=== PATIENT | male | born 1970 | race Caucasian/White ===

== ENCOUNTER 2024-03-17 02:10 | Inpatient (IN) | payer MEDICAID ==
[~2024-03-17] VITALS: Ht 162.6 cm; Wt 70.4 kg
[2024-03-17] VITALS (8 sets, daily range): BP systolic 112–113; BP diastolic 67–72; PULSE 68–98; RESP 18–20; TEMP 36.16956–36.3068; O2SAT 91–98
[2024-03-17] MEDS: ALBUTEROL (0.083%) 2.5MG/3ML NEB HHN SCH (02:45)
[2024-03-17] MEDS: IPRATROPIUM BROMIDE (0.02%) 0.5MG/2.5ML NEB HHN STA (02:45)
[2024-03-17 02:47] LABS: EOSINOPHILS % 3.3 % (0.0-5.0); HEMOGLOBIN. 17.8 g/dL (14.0-18.0); MEAN CORPUSCULAR HEMOGLOBIN 32.6 pg (28.0-32.0); MEAN CORPUSCULAR HGB CONC 33.6 g/dL (31.0-37.0); MEAN CORPUSCULAR VOLUME 97.2 fL (80.0-94.0); MEAN PLATELET VOLUME 7.7 fl (7.4-10.4); MONOCYTES % 7.3 % (2.0-8.0); NEUTROPHILS % 68.4 % (40.0-76.0); PLATELET 332 x1000/uL (130-400); RED BLOOD CELL COUNT 5.45 mill/uL (4.7-6.1); RED CELL DISTRIBUTION WIDTH 14.5 % (11.6-14.6); WHITE BLOOD COUNT 7.3 x1000/uL (4.5-11.0)
[2024-03-17 02:54] LABS: BG BASE EXCESS -7.1 mmol/L (-2.0-3.0); BG CARBOXYHEMOGLOBIN 0.5 % (0.5-1.5); BG DEOXYHEMOGLOBIN 9.5 % (0.0-5.0); BG FRACTION INSPIRED OXYGEN 40; BG HCO3 ACT 14.8 mmol/L (21.0-28.0); BG OXYGEN SATURATION 90.5 % (94.0-98.0); BG PCO2 23.3 mmHg (35.0-48.0); BG PH 7.421 (7.350-7.450); BG PO2 56.6 mmHg (83.0-108.0); BG SAMPLE SITE RIGHT RADIAL; BG TOTAL HEMOGLOBIN 17.1 g/dL (13.5-17.5); BG VENT MODE NASAL CANNULA
[2024-03-17 03:01] LABS: CHLORIDE 108 mEq/L (98-107); POTASSIUM 4.6 mEq/L (3.5-5.1); SODIUM 137 mEq/L (136-145)
[2024-03-17 03:02] LABS: CARBON DIOXIDE 22 mEq/L (21-32)
[2024-03-17 03:03] LABS: CALCIUM 9.4 mg/dL (8.7-10.4)
[2024-03-17 03:07] LABS: CREATININE 1.3 mg/dL (0.6-1.3); GLUCOSE 104 mg/dL (70-105)
[2024-03-17 03:08] LABS: TROPONIN I HIGH SENSITIVITY 12 ng/L (3.0-53); UREA NITROGEN BLOOD 19 mg/dL (9-23)
[2024-03-17] MEDS: METHYLPREDNISOLONE SOD SUCC 125MG/2ML (ACT-O-VIAL) IV STA (03:14)
[2024-03-17] MEDS: MAGNESIUM 2 G PREMIX 50 ML IV ONE (03:15)
[2024-03-17] MEDS ORDERED: ONDANSETRON HCL 4MG/2ML INJ IV PRN (04:45)
[2024-03-17] MEDS ORDERED: GUAIFENESIN 200MG/10ML SUGAR FREE UDC PO PRN (04:45)
[2024-03-17] MEDS ORDERED: ACETAMINOPHEN 325MG TABLET PO PRN ×2 (04:45)
[2024-03-17] MEDS ORDERED: DOCUSATE SODIUM 100MG CAPSULE PO PRN (04:45)
[2024-03-17] MEDS: PREDNISONE 20MG TABLET PO NR (05:56)
[2024-03-17] MEDS: IPRATROPIUM/ALBUTEROL 0.5-3(2.5)MG/3ML NEB HHN SCH (06:00)
[2024-03-17] MEDS: PANTOPRAZOLE 40MG DR TABLET PO SCH (06:48)
[2024-03-17] MEDS ORDERED: LISI10TA26 PO (07:03)
[2024-03-17] MEDS: IPRATROPIUM/ALBUTEROL 0.5-3(2.5)MG/3ML NEB HHN PRN (09:46)
[2024-03-17 10:55] LABS: CARBON DIOXIDE 18 mEq/L (21-32); CHLORIDE 106 mEq/L (98-107); POTASSIUM 3.9 mEq/L (3.5-5.1); SODIUM 136 mEq/L (136-145)
[2024-03-17 10:57] LABS: CALCIUM 9.5 mg/dL (8.7-10.4)
[2024-03-17 10:59] LABS: CREATININE 1.2 mg/dL (0.6-1.3)
[2024-03-17 11:01] LABS: GLUCOSE 121 mg/dL (70-105); UREA NITROGEN BLOOD 14 mg/dL (9-23)
[2024-03-17] MEDS: ACETYLCYSTEINE 200MG/ML 20% VIAL 4ML INH SCH (14:38)
[2024-03-17 15:54] LABS: BASOPHILS % 0.2 % (0.0-2.0); HEMATOCRIT. 52.6 % (42.0-52.0); HEMOGLOBIN. 17.6 g/dL (14.0-18.0); LYMPHOCYTES % 9.4 % (20.0-50.0); MEAN CORPUSCULAR HEMOGLOBIN 32.4 pg (28.0-32.0); MEAN CORPUSCULAR HGB CONC 33.5 g/dL (31.0-37.0); MEAN CORPUSCULAR VOLUME 96.8 fL (80.0-94.0); MEAN PLATELET VOLUME 8.2 fl (7.4-10.4); MONOCYTES % 0.8 % (2.0-8.0); NEUTROPHILS % 89.6 % (40.0-76.0); PLATELET 370 x1000/uL (130-400); RED BLOOD CELL COUNT 5.43 mill/uL (4.7-6.1); WHITE BLOOD COUNT 8.9 x1000/uL (4.5-11.0)
[2024-03-18] VITALS (8 sets, daily range): BP systolic 113–138; BP diastolic 67–99; PULSE 72–98; RESP 16–26; TEMP 36.16956–36.89184; O2SAT 92–98
[2024-03-18 09:01] LABS: POTASSIUM 4.9 mEq/L (3.5-5.1)
[2024-03-18 09:02] LABS: CALCIUM 9.7 mg/dL (8.7-10.4); T4 FREE 1.17 ng/dL (0.89-1.76)
[2024-03-18 09:03] LABS: THYROID STIMULATING HORMONE 1.48 uIU/mL (0.55-4.78)
[2024-03-18 09:07] LABS: CREATININE 1.3 mg/dL (0.6-1.3)
[2024-03-18] MEDS: PREDNISONE 20MG TABLET PO SCH (14:18)
[2024-03-18] MEDS: BENZONATATE 100MG CAPSULE PO PRN (14:30)
[2024-03-18 18:13] LABS: CLARITY URINE CLEAR (CLEAR); COLOR URINE YELLOW (YELLOW); GLUCOSE URINE NEGATIVE (NEGATIVE); KETONES URINE NEGATIVE (NEGATIVE); LEUKOCYTE ESTERASE URINE NEGATIVE (NEGATIVE); NITRITE URINE NEGATIVE (NEGATIVE); OCCULT BLOOD URINE NEGATIVE (NEGATIVE); PH URINE 5.5 (4.5-8.0); PROTEIN URINE NEGATIVE (NEGATIVE); SPECIFIC GRAVITY URINE 1.013 (1.005-1.030); UROBILINOGEN URINE 0.2 E.U./dL (0.2-1.0)
[2024-03-18 19:14] LABS: *AMPHETAMINES SCREEN URINE PRESUMPTIVE POSITIVE (NEGATIVE); *BARBITURATES SCREEN URINE NEGATIVE (NEGATIVE); *BENZODIAZEPINES SCREEN URINE NEGATIVE (NEGATIVE); *COCAINE SCREEN URINE NEGATIVE (NEGATIVE); METHADONE URINE SCREEN NEGATIVE (NEGATIVE)
[2024-03-18 19:15] LABS: CANNABINOID URINE SCREEN NEGATIVE (NEGATIVE); ECSTASY MDMA SCREEN URINE NEGATIVE (NEGATIVE); OPIATES URINE SCREEN NEGATIVE (NEGATIVE); PHENCYCLIDINE URINE SCREEN NEGATIVE (NEGATIVE)
[2024-03-19] VITALS (9 sets, daily range): BP systolic 125–149; BP diastolic 87–99; PULSE 66–95; RESP 18–22; TEMP 36.22512–36.78072; O2SAT 95–97
[2024-03-19 07:08] LABS: CHLORIDE 106 mEq/L (98-107); POTASSIUM 4.7 mEq/L (3.5-5.1); SODIUM 135 mEq/L (136-145)
[2024-03-19 07:09] LABS: CALCIUM 10.4 mg/dL (8.7-10.4); CARBON DIOXIDE 17 mEq/L (21-32)
[2024-03-19 07:14] LABS: CREATININE 1.4 mg/dL (0.6-1.3); GLUCOSE 98 mg/dL (70-105); UREA NITROGEN BLOOD 25 mg/dL (9-23)
[2024-03-19 07:16] LABS: ALANINE AMINOTRANSFERASE 31 IU/L (10-49); ALBUMIN 4.9 g/dL (3.2-4.8); ASPARTATE AMINOTRANSFERASE 27 IU/L (<34); PROTEIN TOTAL 8.3 g/dL (6.0-8.3)
[2024-03-20] VITALS (8 sets, daily range): BP systolic 144–153; BP diastolic 69–99; PULSE 76–107; RESP 18–24; TEMP 36.16956–37.2252; O2SAT 95–98
[2024-03-20 08:22] LABS: HEMATOCRIT 58.9 % (42.0-52.0); HEMOGLOBIN 19.1 g/dL (14.0-18.0); MEAN CORPUSCULAR HEMOGLOBIN 31.6 pg (28.0-32.0); MEAN CORPUSCULAR HGB CONC 32.4 g/dL (31.0-37.0); MEAN CORPUSCULAR VOLUME 97.4 fL (80.0-94.0); PLATELET 353 x1000/uL (130-400); RED BLOOD CELL COUNT 6.04 mill/uL (4.7-6.1); RED CELL DISTRIBUTION WIDTH 14.1 % (11.6-14.6); WHITE BLOOD COUNT 12.2 x1000/uL (4.5-11.0)
[2024-03-20 08:26] LABS: CALCIUM 9.4 mg/dL (8.7-10.4); CARBON DIOXIDE 19 mEq/L (21-32); CHLORIDE 108 mEq/L (98-107); POTASSIUM 4.1 mEq/L (3.5-5.1); SODIUM 137 mEq/L (136-145)
[2024-03-20 08:32] LABS: CREATININE 1.3 mg/dL (0.6-1.3); GLUCOSE 104 mg/dL (70-105); UREA NITROGEN BLOOD 25 mg/dL (9-23)
[2024-03-21] VITALS (10 sets, daily range): BP systolic 128–142; BP diastolic 74–103; PULSE 73–109; RESP 17–24; TEMP 36.22512–36.78072; O2SAT 93–99
[2024-03-21 11:34] LABS: HEMOGLOBIN 18.2 g/dL (14.0-18.0); MEAN CORPUSCULAR HEMOGLOBIN 32.9 pg (28.0-32.0); MEAN CORPUSCULAR HGB CONC 33.7 g/dL (31.0-37.0); MEAN CORPUSCULAR VOLUME 97.7 fL (80.0-94.0); PLATELET 318 x1000/uL (130-400); RED BLOOD CELL COUNT 5.52 mill/uL (4.7-6.1); RED CELL DISTRIBUTION WIDTH 14.1 % (11.6-14.6); WHITE BLOOD COUNT 11.7 x1000/uL (4.5-11.0)
[2024-03-21 11:43] LABS: CHLORIDE 105 mEq/L (98-107); POTASSIUM 3.9 mEq/L (3.5-5.1); SODIUM 136 mEq/L (136-145)
[2024-03-21 11:44] LABS: CARBON DIOXIDE 20 mEq/L (21-32)
[2024-03-21 11:49] LABS: CREATININE 1.2 mg/dL (0.6-1.3); GLUCOSE 118 mg/dL (70-105); UREA NITROGEN BLOOD 21 mg/dL (9-23)
[2024-03-21 12:10] LABS: BG BASE EXCESS -2.6 mmol/L (-2.0-3.0); BG CARBOXYHEMOGLOBIN 0.3 % (0.5-1.5); BG DEOXYHEMOGLOBIN 5.2 % (0.0-5.0); BG FRACTION INSPIRED OXYGEN 21; BG HCO3 ACT 19.5 mmol/L (21.0-28.0); BG METHEMOGLOBIN 0.2 % (0.5-1.5); BG OXYGEN SATURATION 94.8 % (94.0-98.0); BG OXYHEMOGLOBIN 94.3 % (94.0-98.0); BG PCO2 28.8 mmHg (35.0-48.0); BG PH 7.449 (7.350-7.450); BG PO2 63.7 mmHg (83.0-108.0); BG SAMPLE SITE RIGHT BRACHIAL; BG TOTAL HEMOGLOBIN 19.5 g/dL (13.5-17.5); BG VENT MODE ROOM AIR
[2024-03-21] MEDS: GUAIFENESIN 200MG/10ML SUGAR FREE UDC PO SCH (13:21)
[2024-03-21] MEDS: SODIUM CHLORIDE 3% FOR INH 4ML NEB INH NR (15:35)
[2024-03-22] VITALS: BP 126/90; PULSE 93; RESP 19; TEMP 36.33624; O2SAT 98
[2024-03-22 02:11] VITALS: PULSE 77; RESP 18; O2SAT 99
[2024-03-22 04:00] VITALS: BP 133/93; PULSE 92; RESP 20; TEMP 36.3918; O2SAT 97
[2024-03-22 07:14] LABS: CHLORIDE 104 mEq/L (98-107); SODIUM 137 mEq/L (136-145)
[2024-03-22 07:15] LABS: CALCIUM 9.4 mg/dL (8.7-10.4); CARBON DIOXIDE 21 mEq/L (21-32)
[2024-03-22 07:20] LABS: CREATININE 1.1 mg/dL (0.6-1.3); GLUCOSE 89 mg/dL (70-105); UREA NITROGEN BLOOD 23 mg/dL (9-23)
[2024-03-22 07:32] LABS: HEMATOCRIT 55.5 % (42.0-52.0); MEAN CORPUSCULAR HEMOGLOBIN 31.7 pg (28.0-32.0); MEAN CORPUSCULAR HGB CONC 32.5 g/dL (31.0-37.0); MEAN CORPUSCULAR VOLUME 97.6 fL (80.0-94.0); PLATELET 343 x1000/uL (130-400); RED BLOOD CELL COUNT 5.69 mill/uL (4.7-6.1); RED CELL DISTRIBUTION WIDTH 14.5 % (11.6-14.6); WHITE BLOOD COUNT 13.5 x1000/uL (4.5-11.0)
[2024-03-22 08:00] VITALS: BP 140/89; PULSE 98; RESP 20; TEMP 36.72516; O2SAT 95
[2024-03-22] MEDS: FAMOTIDINE 20MG TABLET PO SCH (08:17)
[2024-03-22] MEDS ORDERED: LIP40 MT (10:40)
[2024-03-22 10:54] VITALS: BP 140/89; PULSE 98; TEMP 98.1; O2SAT 95
== END 2024-03-22 12:30 | disposition home or self-care (01) | DRG 812 ==
LOC: ER 02:10 → 5WST 04:55 → 7WST 21:21
PROVIDERS: ADMIT Internal Medicine; ATTEND Internal Medicine
PROC: 5A09357 Assistance with Respiratory Ventilation, Less than 24 Consecutive Hours, Continuous Positive Airway Pressure (ICD-10-PCS; principal; 2024-03-19)
PROC: 5A09357 Assistance with Respiratory Ventilation, Less than 24 Consecutive Hours, Continuous Positive Airway Pressure (ICD-10-PCS; 2024-03-20)
PROC: 5A09357 Assistance with Respiratory Ventilation, Less than 24 Consecutive Hours, Continuous Positive Airway Pressure (ICD-10-PCS; 2024-03-21)
PROC: 5A09357 Assistance with Respiratory Ventilation, Less than 24 Consecutive Hours, Continuous Positive Airway Pressure (ICD-10-PCS; 2024-03-22)
DX: T43.621A Poisoning by amphetamines, accidental (unintentional), initial encounter (principal); J96.21 Acute and chronic respiratory failure with hypoxia; E87.3 Alkalosis; I27.21 Secondary pulmonary arterial hypertension; J68.0 Bronchitis and pneumonitis due to chemicals, gases, fumes and vapors; I11.0 Hypertensive heart disease with heart failure; I50.9 Heart failure, unspecified; Z20.822 Contact with and (suspected) exposure to COVID-19; E78.00 Pure hypercholesterolemia, unspecified; K21.9 Gastro-esophageal reflux disease without esophagitis; K59.00 Constipation, unspecified; G47.33 Obstructive sleep apnea (adult) (pediatric); F15.90 Other stimulant use, unspecified, uncomplicated; D75.1 Secondary polycythemia; F41.9 Anxiety disorder, unspecified; T43.655A Adverse effect of methamphetamines, initial encounter; Z82.49 Family history of ischemic heart disease and other diseases of the circulatory system; Z87.891 Personal history of nicotine dependence; Z91.199 Patient's noncompliance with other medical treatment and regimen due to unspecified reason; Y92.89 Other specified places as the place of occurrence of the external cause
CPT/HCPCS: 36415; 36600; 71045; 76770; 80048; 80053; 80061; 80305; 81003; 82375; 82550; 82805; 83735; 83880; 84145; 84439; 84443; 84484; 85025; 85027; 87426; 93005; 93306; 93970; 94640; 99291; J2919; J3475; J7512; J7608